=== PATIENT | female | born 1965 | race Caucasian/White ===

== ENCOUNTER 2016-07-18 13:51 | Emergency (ER) | payer BC, OTHER ==
[~2016-07-18] VITALS: Ht 170.2 cm; Wt 70.9 kg
[~2016-07-18 13:51] MED LIST: IBUP400 PO
[2016-07-18 13:55] VITALS: BP 122/73; PULSE 64; RESP 16; TEMP 98.4; O2SAT 98
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
[2016-07-18] MEDS ORDERED: DICL75TA PO (15:07)
[2016-07-18] MEDS ORDERED: TRAM50TA PO (15:07)
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
== END 2016-07-18 15:34 | disposition home or self-care (01) ==
LOC: PHEFT 13:51
DX: S60.211A Contusion of right wrist, initial encounter (principal); W22.8XXA Striking against or struck by other objects, initial encounter; Y93.89 Activity, other specified; Y92.9 Unspecified place or not applicable
CPT/HCPCS: 73110; 73130; 99283; L3908

== ENCOUNTER 2017-05-09 11:48 | Emergency (ER) | payer OTHER ==
[~2017-05-09 11:48] MED LIST changes: +DICL75TA PO; -IBUP400 PO; +TRAM50TA PO
[2017-05-09 11:55] VITALS: BP 122/70; PULSE 60; RESP 18; TEMP 98.1; O2SAT 98
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
[2017-05-09 12:47] LABS: AUTOMATED NEUTROPHIL # 5.9 TH/MM3 (1.8-7.7); BASOPHIL # 0.1 TH/MM3 (0-0.2); BASOPHIL % 0.6 % (0.0-2.0); BILIRUBIN, URINE NEG (NEG); BLOOD, URINE NEG (NEG); EOSINOPHIL # 0.2 TH/MM3 (0-0.4); EOSINOPHIL % 2.1 % (0.0-4.0); GLUCOSE,URINE NEG (NEG); HEMATOCRIT 41.1 % (35.0-46.0); KETONE, URINE NEG (NEG); LYMPH % 20.8 % (9.0-44.0); LYMPHOCYTE # 1.8 TH/MM3 (1.0-4.8); MEAN CELL VOLUME 89.1 FL (80.0-100.0); MEAN CORPUSCULAR HEMOGLOBIN 30.2 PG (27.0-34.0); MEAN PLATELET VOLUME 7.4 FL (7.0-11.0); MONO % 5.7 % (0.0-8.0); MONOCYTE # 0.5 TH/MM3 (0-0.9); NEUT % 70.8 % (16.0-70.0); NITRITE,URINE NEG (NEG); PLATELET COUNT 318 TH/MM3 (150-450); RED BLOOD COUNT 4.62 MIL/MM3 (4.00-5.30); RED CELL DISTRIBUTION WIDTH 12.9 % (11.6-17.2); URINE LEUKOCYTE ESTERASE NEG (NEG); WHITE BLOOD COUNT 8.5 TH/MM3 (4.0-11.0)
[2017-05-09 12:54] LABS: URINE COLOR YELLOW (YELLW/STRAW)
[2017-05-09 12:55] LABS: BACTERIA, URINE OCC /hpf; SQUAMOUS EPITHELIAL CELL URINE 0-5 /hpf (0-5); WBC, URINE 0-2 /hpf (0-5)
[2017-05-09 13:04] LABS: CALCIUM 9.1 MG/DL (8.5-10.1)
[2017-05-09 13:05] LABS: BICARBONATE 29.4 MEQ/L (21.0-32.0)
[2017-05-09 13:08] LABS: CREATININE 0.74 MG/DL (0.50-1.00)
[2017-05-09] MEDS ORDERED: HYDR-3534 PO (13:14)
[2017-05-09] MEDS ORDERED: DOXY100C PO (13:14)
[2017-05-09] MEDS ORDERED: cefTRIAXone 250 MG VIAL IV ONE (13:15)
== END 2017-05-09 14:27 | disposition home or self-care (01) ==
LOC: PHED 11:48
DX: N72 Inflammatory disease of cervix uteri (principal)
CPT/HCPCS: 80048; 81001; 85025; 87210; 87491; 87591; 96374; 99284; J0696

== ENCOUNTER 2017-10-11 10:41 | Observation (INO) | payer OTHER ==
[~2017-10-11] VITALS: Ht 170.2 cm; Wt 68.6 kg
[~2017-10-11 10:41] MED LIST changes: -DICL75TA PO; +DOXY100C PO; +HYDR-3534 PO; -TRAM50TA PO
[2017-10-11 11:00] VITALS: BP 112/61; PULSE 71; RESP 16; TEMP 98.9; O2SAT 95
[2017-10-11] MEDS ORDERED: SODIUM CHLOR 0.9% 1000 ML INJ 1,000 ML IV SCH (11:55)
[2017-10-11] MEDS ORDERED: SODIUM CHLORIDE 0.9% FLUSH 10 ML FLUSH IV FLUSH PRN ×2 (12:00→14:45)
[2017-10-11] MEDS ORDERED: KETOROLAC TROMETHAMINE 30 MG/ML (IVP) VIAL IVP ONE (12:00)
[2017-10-11] MEDS ORDERED: ONDANSETRON HCL 4 MG/2 ML VIAL IVP ONE (12:00)
[2017-10-11] MEDS ORDERED: ACETAMINOPHEN 325 MG TAB PO ONE (12:00)
[2017-10-11 12:16] LABS: BLOOD, URINE NEG (NEG); GLUCOSE,URINE NEG (NEG); KETONE, URINE 15 mg/dL (NEG); NITRITE,URINE NEG (NEG); PH, URINE 5.5 (5.0-8.5); URINE COLOR YELLOW (YELLW/STRAW); URINE LEUKOCYTE ESTERASE NEG (NEG)
[2017-10-11 12:18] LABS: AUTOMATED NEUTROPHIL # 5.8 TH/MM3 (1.8-7.7); BASOPHIL # 0.1 TH/MM3 (0-0.2); BASOPHIL % 1.1 % (0.0-2.0); EOSINOPHIL % 0.3 % (0.0-4.0); HEMATOCRIT 42.7 % (35.0-46.0); HEMOGLOBIN 14.4 GM/DL (11.6-15.3); LYMPH % 6.2 % (9.0-44.0); LYMPHOCYTE # 0.4 TH/MM3 (1.0-4.8); MEAN CELL VOLUME 89.6 FL (80.0-100.0); MEAN CORPUSCULAR HEMOGLOBIN 30.2 PG (27.0-34.0); MEAN CORPUSCULAR HGB CONC 33.7 % (32.0-36.0); MEAN PLATELET VOLUME 7.8 FL (7.0-11.0); MONO % 10.4 % (0.0-8.0); MONOCYTE # 0.7 TH/MM3 (0-0.9); PLATELET COUNT 218 TH/MM3 (150-450); RED BLOOD COUNT 4.77 MIL/MM3 (4.00-5.30); RED CELL DISTRIBUTION WIDTH 12.5 % (11.6-17.2)
[2017-10-11 12:19] LABS: BILIRUBIN, URINE NEG (NEG)
[2017-10-11 12:21] LABS: BACTERIA, URINE OCC /hpf; MUCUS URINE FEW /lpf (OCC); SQUAMOUS EPITHELIAL CELL URINE > 8 /hpf (0-5)
[2017-10-11] MEDS ORDERED: IOHEXOL 350 MG/ML 10 ML VIAL (for RAD DIAG) IVCONTRAST ONE (12:21)
[2017-10-11 12:24] LABS: CHLORIDE 102 MEQ/L (98-107); SODIUM (NA) 136 MEQ/L (136-145)
[2017-10-11 12:30] VITALS: BP 108/69; PULSE 50; RESP 16; O2SAT 95
[2017-10-11 12:30] LABS: ALBUMIN 3.9 GM/DL (3.4-5.0); BICARBONATE 27.2 MEQ/L (21.0-32.0); BLOOD UREA NITROGEN 15 MG/DL (7-18); GLUCOSE,RANDOM 101 MG/DL (74-106)
--- NOTE | 2017-10-11 12:31 | RADRPT ---
EXAM DATE/TIME: 10/11/2017 12:07 [facility] COMPARISON: No previous studies available for comparison. INDICATIONS : Left upper abdominal pain, nausea. IV CONTRAST: 75 cc Omnipaque 350 (iohexol) IV ORAL CONTRAST: No oral contrast ingested. RADIATION DOSE: 5.90 CTDIvol (mGy) MEDICAL HISTORY : None SURGICAL HISTORY : Appendectomy. Tubal ligation.OOphrectomy,Breast implants, Back ENCOUNTER: Initial ACUITY: 1 day PAIN SCALE: 7/10 LOCATION: Left flank and upper abdomen TECHNIQUE: Volumetric scanning of the abdomen and pelvis was performed. Using automated exposure control and ad justment of the mA and/or kV according to patient size, radiation dose was kept as low as reasonably achievable to obtain optimal diagnostic quality images. DICOM format image data is available electro nically for review and comparison. FINDINGS: Dependent atelectasis present at the lung bases. No pleural or pericardial effusion. Breast augmentat ion. No acute findings in the liver, spleen, adrenals, kidneys or pancreas. No calcified gallstones or faby iary ductal dilatation. The mild scoliosis. There is previous fusion of the lumbosacral junction. CONCLUSION: 1. No acute findings. Mild scoliosis. Previous fusion lower lumbar spine. Singh Leonardo MD on October 11, 2017 at 12:25 Board Certified Radiologist. This report was verified electronically.
[2017-10-11 12:33] LABS: ALT (GPT) 20 U/L (10-53); AST (GOT) 18 U/L (15-37); CREATININE 0.91 MG/DL (0.50-1.00); GLOMERULAR FILTRATION RATE 65 ML/MIN (>89)
[2017-10-11 12:34] LABS: TOTAL PROTEIN 7.8 GM/DL (6.4-8.2)
[2017-10-11 12:35] LABS: ALKALINE PHOSPHATASE 49 U/L (45-117)
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
[2017-10-11] MEDS ORDERED: ALUMINUM/MAGNESIUM/SIMETH 30 ML CUP PO ONE (12:45)
[2017-10-11] MEDS ORDERED: LIDOCAINE VISCOUS 2% SOLN 15 ML UDC PO ONE (12:45)
--- NOTE | 2017-10-11 13:19 | RADRPT ---
EXAM DATE/TIME: 10/11/2017 12:43 [facility] COMPARISON: No previous studies available for comparison. INDICATIONS : Chest palpitations MEDICAL HISTORY : None. SURGICAL HISTORY : None. Appendectomy. Tubal ligation. Oophrectomy, Breast implants, Back ENCOUNTER: Initial ACUITY: 1 day PAIN SCORE: 5/10 LOCATION: chest FINDINGS: A single view of the chest demonstrates the lungs to be symmetrically aerated without evidence of mas s, infiltrate or effusion. The cardiomediastinal contours are unremarkable. Osseous structures are intact. CONCLUSION: No acute disease. Cuate Leon MD on October 11, 2017 at 13:16 Board Certified Radiologist. This report was verified electronically.
[2017-10-11] MEDS ORDERED: LEXA20TA PO (13:31)
[2017-10-11 13:34] VITALS: O2SAT 99
[2017-10-11 13:35] VITALS: BP 92/47; PULSE 52; RESP 16; O2SAT 98
[2017-10-11 14:44] VITALS: BP 98/59; PULSE 48; RESP 16; O2SAT 95
[2017-10-11] MEDS ORDERED: ONDANSETRON HCL 4 MG/2 ML VIAL IV PUSH PRN (15:00)
[2017-10-11] MEDS ORDERED: NITROGLYCERIN 0.4 MG SL 25 TABS/BTL SL PRN (15:00)
[2017-10-11] MEDS ORDERED: ACETAMINOPHEN 500 MG CPLT PO PRN (15:00)
--- NOTE | 2017-10-11 15:21 | HHI.HP ---
[facility] Primary Care Physician Admission Diagnosis Chest Pain; Abdominal Pain; Malaise/Fatigue Diagnoses: (1) Chest pain Diagnosis: Principal Chief Complaint: Chest pain Travel History International Travel<30 Days: No Contact w/Intl Traveler <30 Da: No Traveled to Known Affected Are: No History of Present Illness 52-year-old female with known history of anxiety who presented to the hospital for multiple reasons. Patient indicates that yesterday she started developing fatigue, weakness, cold sweats, felt as if she is hot or running a fever. She continued with increased fatigue and weakness in the 9 AM this morning she started developing a constant pain in the mid part of her chest/ epigastric region that radiated into her shoulder blades. She states that it was a constant sharp pain that was 7/10 on a pain scale. Because of the pain her brought her to the hospital for evaluation. She had some nausea, she denied any vomiting, shortness of breath, dyspnea, lightheadedness, dizziness. Patient was given a GI cocktail and Toradol with minimal improvement of pain scale 5/10. However the pain is starting to get worse again up to a 7/10 on a pain scale. Pain is reproducible on palpation. Patient has no chronic medical illnesses, risk factors include age and tobacco use, family history of heart disease. Patient had full workup to evaluate for any intra-abdominal or respiratory issue. All laboratory studies were negative , influenza testing was negative. Chest x-ray was unremarkable. CT of the abdomen showed only a mild scoliosis no other acute findings. His workup was negative and patient continued to have chest discomfort it was recommended by the ER physician of the patient be observed in the chest pain center. Review of Systems Constitutional: COMPLAINS OF: Diaphoretic episodes, Fever, Chills, Dizziness Cardiovascular: COMPLAINS OF: Chest pain Gastrointestinal: COMPLAINS OF: Abdominal pain Except as stated in HPI: all other systems reviewed are Neg Past Family Social History Past Medical History Anxiety Past Surgical History Lumbar surgery at L5/S1 Laparoscopic abdominal surgery Tubal ligation Reported Medications Reported Meds & Active Scripts Active Lortab (Hydrocodone-Acetaminophen) 7.5-325 Mg Tab 1 Tab PO Q4H PRN 15 Days Reported Lexapro (Escitalopram Oxalate) 20 Mg Tab 20 Mg PO DAILY Allergies: Coded Allergies: Sulfa (Sulfonamide Antibiotics) (Unverified Allergy, Severe, HIVES, ) codeine (Unverified Allergy, Severe, HIVES, 10/11/17) morphine (Unverified Allergy, Severe, HIVES, 10/11/17) penicillin G (Unverified Allergy, Severe, HIVES, 10/11/17) tetanus toxoid, adsorbed (Unverified Allergy, Severe, SERUM SICKNESS, 10/11) Family History Review significant for father from heart disease in his 60s, mother alive in good health. Social History Patient smokes 1 pack cigarettes a day since she was 20 years old. She drinks a glass of wine daily. Denies any illicit drug Physical Exam Vital Signs Vital Signs Date Time Temp Pulse Resp B/P (MAP) Pulse Ox O2 Delivery O2 Flow Rate FiO2 10/11/17 14:44 48 16 98/59 (72) 95 Room Air 10/11/17 13:35 52 16 92/47 (62) 98 10/11/17 13:34 99 10/11/17 12:30 50 16 108/69 (82) 95 Room Air 10/11/17 11:00 98.9 71 16 112/61 (78) 95 Physical Exam GENERAL: Well-developed, well-nourished, in no acute distress. alert and orientated HEENT: Head is normocephalic without any lesions or masses noted. Facial features are symmetric. Eyes: Pupils equal round reactive to light. Extraocular muscles are intact. Conjunctivae were clear. Oropharyngeal: Pharynx without any erythema edema. Tongue is midline without deviation. Buccal mucosa is moist without any masses or lesions NECK: Supple without any masses. Trachea midline no deviation. No JVD, no bruits are appreciated CARDIAC: Regular rhythm, regular rate. S1/S2 are heard. No murmurs gallops or rubs. Reproducible chest wall tenderness at the site of patient's presenting pain LUNGS: Clear to auscultation bilaterally. No wheeze, rhonchi or rales. No use of accessory muscles on inspiration or expiration. ABDOMEN: Soft, nontender. Nondistended. Bowel sounds heard in all 4 quadrants. No organomegaly or masses. Negative rebound, negative guarding EXTREMITIES: No edema, pulses are equal bilaterally. No cyanosis or clubbing NEUROLOGY: Mood and affect appear appropriate. Cranial nerves II through XII grossly intact. Muscle strength 5/5 in upper and lower extremities bilaterally. Deep tendon reflexes are 2+ in upper and lower extremities bilaterally. Laboratory Laboratory Tests Test 10/11/17 12:00 10/11/17 12:30 White Blood Count 7.0 Red Blood Count 4.77 Hemoglobin 14.4 Hematocrit 42.7 Mean Corpuscular Volume 89.6 Mean Corpuscular Hemoglobin 30.2 Mean Corpuscular Hemoglobin Concent 33.7 Red Cell Distribution Width 12.5 Platelet Count 218 Mean Platelet Volume 7.8 Neutrophils (%) (Auto) 82.0 Lymphocytes (%) (Auto) 6.2 Monocytes (%) (Auto) 10.4 Eosinophils (%) (Auto) 0.3 Basophils (%) (Auto) 1.1 Neutrophils # (Auto) 5.8 Lymphocytes # (Auto) 0.4 Monocytes # (Auto) 0.7 Eosinophils # (Auto) 0.0 Basophils # (Auto) 0.1 CBC Comment DIFF FINAL Differential Comment Urine Collection Type CLEAN CATCH Urine Color YELLOW Urine Turbidity CLEAR Urine pH 5.5 Urine Specific [place] GREATER/EQUAL 1.030 Urine Protein TRACE Urine Glucose (UA) NEG Urine Ketones 15 Urine Occult Blood NEG Urine Nitrite NEG Urine Bilirubin NEG Urine Urobilinogen 0.2 Urine Leukocyte Esterase NEG Urine WBC 3-5 Urine Squamous Epithelial Cells > 8 Urine Bacteria OCC Urine Mucus FEW Microscopic Urinalysis Comment CULT NOT INDICATED Urine Collection Time 12:00 Blood Urea Nitrogen 15 Creatinine 0.91 Random Glucose 101 Total Protein 7.8 Albumin 3.9 Calcium Level 9.0 Alkaline Phosphatase 49 Aspartate Amino Transf (AST/SGOT) 18 Alanine Aminotransferase (ALT/SGPT) 20 Total Bilirubin 1.0 Sodium Level 136 Potassium Level 3.7 Chloride Level 102 Carbon Dioxide Level 27.2 Anion Gap 7 Estimat Glomerular Filtration Rate 65 Troponin I LESS THAN 0.02 Lipase 169 Lactic Acid Level 0.8 Date/Time Source Procedure Growth Status 10/11/17 12:45 Nasal Aspirate Influenza Types A,B Antigen (JOCELYN) - Final NEGATIVE FOR FLU A AND B ANTIGEN.... Complete Result Diagram: 10/11/17 1200 10/11/17 1200 Imaging Last Impressions Abdomen/Pelvis CT 10/11/17 1155 Signed Impressions: Service Date/Time: Wednesday, October 11, 2017 12:07 - CONCLUSION: 1. No acute findings. Mild scoliosis. Previous fusion lower lumbar spine. Singh Leonardo MD Chest X-Ray 10/11/17 0000 Signed Impressions: Service Date/Time: Wednesday, October 11, 2017 12:43 - CONCLUSION: No acute disease. Cuate Leon MD Capjoyce VTE Risk Assessment Caprini VTE Risk Assessment: No/Low Risk (score <= 1) Caprini Risk Assessment Model Point Value = 1 Point Value = 2 Point Value = 3 Point Value = 5 Age 41-60 Minor surgery BMI > 25 kg/m2 Swollen legs Varicose veins or History of unexplained or recurrent spontaneous Oral contraceptives or hormone replacement Sepsis (< 1 month) Serious lung disease, including pneumonia (< 1 month) Abnormal pulmonary function Acute myocardial infarction Congestive heart failure (< 1 month) History of inflammatory bowel disease Medical patient at bed rest Age 61-74 Arthroscopic surgery Major open surgery (> 45 min) Laparoscopic surgery (> 45 min) Malignancy Confined to bed (> 72 hours) Immobilizing plaster cast Central venous access Age >= 75 History of VTE Family history of VTE Factor V Leiden Prothrombin [id number] Lupus anticoagulant Anticardiolipin antibodies Elevated serum homocysteine Heparin-induced thrombocytopenia Other congenital or acquired thrombophilia Stroke (< 1 month) Elective arthroplasty Hip, pelvis, or leg fracture Acute spinal cord injury (< 1 month) Prophylaxis Regimen Total Risk Factor Score Risk Level Prophylaxis Regimen 0-1 Low Early ambulation 2 Moderate Order ONE of the following: *Sequential Compression Device (SCD) *Heparin 5000 units SQ BID 3-4 Higher Order ONE of the following medications: *Heparin 5000 units SQ TID *Enoxaparin/Lovenox 40 mg SQ daily (WT < 150 kg, CrCl > 30 mL/min) *Enoxaparin/Lovenox 30 mg SQ daily (WT < 150 kg, CrCl > 10-29 mL/min) *Enoxaparin/Lovenox 30 mg SQ BID (WT < 150 kg, CrCl > 30 mL/min) AND/OR *Sequential Compression Device (SCD) 5 or more Highest Order ONE of the following medications: *Heparin 5000 units SQ TID (Preferred with Epidurals) *Enoxaparin/Lovenox 40 mg SQ daily (WT < 150 kg, CrCl > 30 mL/min) *Enoxaparin/Lovenox 30 mg SQ daily (WT < 150 kg, CrCl > 10-29 mL/min) *Enoxaparin/Lovenox 30 mg SQ BID (WT < 150 kg, CrCl > 30 mL/min) AND *Sequential Compression Device (SCD) Assessment and Plan Assessment and Plan Chest pain, atypical Patient with risk factors to include age, tobacco use, family history of heart disease Pain is reproducible on palpation and improved with GI cocktail/Toradol Will continue to rule the patient out for acute coronary event with serial cardiac enzymes which are negative thus far Serial EKG shows sinus rhythm with incomplete right bundle branch block Myocardial perfusion study was performed and indicated normal examination, no signs of ischemia, low risk Continue aspirin, nitroglycerin as needed, oxygen as needed General malaise, fatigue, chills Laboratory studies, chest x-ray, CT of the abdomen does not indicate any acute abnormality or etiology Could represent underlying viral infection DVT prevention Sequential compression devices Discharge disposition Discharge home in stable condition Activity: Ad abhilash. Diet: Regular diet Medication per medication reconciliation Follow-up with primary medical doctor in 1 week Problem Qualifiers (1) Chest pain: Qualified Codes: R07.9 - Chest pain, unspecified Jean Porras Oct 11, 2017 15:21
[2017-10-11 15:38] LABS: TROPONIN I LESS THAN 0.02 NG/ML (0.02-0.05)
[2017-10-11] MEDS ORDERED: FAMOTIDINE 20 MG TAB PO SCH (16:15)
[2017-10-11] MEDS ORDERED: KETOROLAC TROMETHAMINE 30 MG/ML (IVP) VIAL IV PUSH PRN (16:15)
[2017-10-11 16:30] VITALS: BP 99/55; PULSE 52; RESP 18; TEMP 97.8; O2SAT 95
[2017-10-11] MEDS ORDERED: REGADENOSON INJ 0.4 MG/5 ML SYR IV ONE (17:30)
--- NOTE | 2017-10-11 18:29 | RADRPT ---
EXAM DATE/TIME: 10/11/2017 17:17 [facility] COMPARISON: No previous studies available for comparison. INDICATIONS : Substernal chest pain. Angina. DOSE: 25.4 mCi Tc99m Myoview at stress. 8.5 mCi Tc99m Myoview at rest. 0.4 mg Lexiscan STRESS SYMPTOMS: Anxious, flushed and diaphoresis. EJECTION FRACTION: 65% MEDICAL HISTORY : None SURGICAL HISTORY : Tonsillectomy. Tubal ligation. Cholecystectomy. Breast implants and back surgery. ENCOUNTER: Initial ACUITY: 1 day PAIN SCALE: 6/10 LOCATION: Substernal chest TECHNIQUE: The patient underwent pharmacologic stress with infusion of prescribed dose. Continuous ECG tracing was monitored during stress. Gated SPECT imaging was performed after stress and conventional SPECT i maging was performed at rest. The examination was performed on a SPECT/CT scanner, both attenuation and non-corrected datasets were reviewed. FINDINGS: DISTRIBUTION: The maximum perfused segment at stress is in the anteroseptal wall. PERFUSION STUDY: The pattern of perfusion at stress is within normal limits. GATED STUDY: There is intact wall motion and thickening without hypokinetic or dyskinetic segments. CONCLUSION: Normal examination. RISK CATEGORY: Low (<1% Annual Mortality Rate) Ceferino Velazquez MD on October 11, 2017 at 18:23 Board Certified Radiologist. This report was verified electronically.
--- NOTE | 2017-10-11 18:30 | HHI.DCPOC ---
Discharge Care Plan Diagnosis: (1) Chest pain Goals to Promote Your Health * To prevent worsening of your condition and complications * To maintain your health at the optimal level Directions to Meet Your Goals Take your medications as prescribed Follow your dietary instruction Follow activity as directed Keep your appointments as scheduled Take your immunizations and boosters as scheduled If your symptoms worsen call your PCP, if no PCP go to Urgent Care Center or Emergency Room Smoking is Dangerous to Your Health. Avoid second hand smoke Call the 24-hour hour crisis hotline for domestic abuse at Jean Porras Oct 11, 2017 18:30
[2017-10-11] MEDS ORDERED: SODIUM CHLORIDE 0.9% FLUSH 10 ML FLUSH IV FLUSH SCH (21:00)
[2017-10-12] MEDS ORDERED: ASPIRIN 325 MG TAB PO SCH (09:00)
[2017-10-12] MEDS ORDERED: ESCITALOPRAM OXALATE 20 MG TAB PO SCH (09:00)
[2017-10-12] MEDS ORDERED: PNEUMOCOCCAL POLYVALENT INJ 25 MCG/0.5 ML SYR IM ONE (10:00)
--- NOTE | 2017-10-12 14:35 | EKG ---
Date Performed: 10/11/2017 Time Performed: 15:30:10 PTAGE: 52 years EKG: SINUS BRADYCARDIA POSSIBLE LEFT ATRIAL ENLARGEMENT INCOMPLETE RIGHT BUNDLE BRANCH BLOCK BOR DERLINE ECG Since PREVIOUS TRACING , no significant change noted PREVIOUS TRACIN.47.16 DOCTOR: Jones Jaquez Interpretating Date/Time 10/12/2017 14:35:09
--- NOTE | 2017-10-12 14:37 | EKG ---
Date Performed: 10/11/2017 Time Performed: 10:47:16 PTAGE: 52 years EKG: Sinus rhythm POSSIBLE LEFT ATRIAL ENLARGEMENT INCOMPLETE RIGHT BUNDLE BRANCH BLOCK BORDERLINE ECG Since PREVIOUS TRACING , no significant change noted PREVIOUS TRACIN05/14/2009 14.16 DOCTOR: Jones Jaquez Interpretating Date/Time 10/12/2017 14:35:49
--- NOTE | 2017-10-12 18:09 | TR ---
Date Performed: 10/11/2017 Time Performed: 17:37:48 DOCTOR: Kushal Ayers DRUG LIST: CLINICAL HISTORY: CHEST PAIN REASON FOR TEST: Chest pain REASON FOR ENDING: OBSERVATION: CONCLUSION: Lexiscan stress test was performed under standard four minute protocol. Radionuclid e was injected one minute prior to ending the test. No electrocardiographic abormalities were present to suggest ischemia. Nuclear imaging and interpretation are pending. COMMENTS:
== END 2017-10-11 19:41 | disposition home or self-care (01) ==
LOC: PHED 10:41 → PH3A 14:31 → PHED 15:53 → PH3A 15:53
PROVIDERS: ADMIT Hospitalist; ATTEND Hospitalist
DX: R07.89 Other chest pain (principal); R53.1 Weakness; I45.10 Unspecified right bundle-branch block; R00.1 Bradycardia, unspecified; R10.9 Unspecified abdominal pain; R50.9 Fever, unspecified; R61 Generalized hyperhidrosis; K21.9 Gastro-esophageal reflux disease without esophagitis; M41.9 Scoliosis, unspecified; F41.9 Anxiety disorder, unspecified; F32.9 Major depressive disorder, single episode, unspecified; F17.210 Nicotine dependence, cigarettes, uncomplicated; Z82.49 Family history of ischemic heart disease and other diseases of the circulatory system; Z98.1 Arthrodesis status
CPT/HCPCS: 71045; 74177; 78452; 80053; 81001; 82550; 83605; 83690; 84484; 84703; 85025; 87804; 93005; 93017; 96361; 96374; 99285; A9502; G0378; J1885; J2405; J2785; J7030; Q9967